=== PATIENT | male | born 1960 | race African-American/Black ===

== ENCOUNTER 2017-03-25 19:57 | Emergency (ER) | payer OTHER ==
[~2017-03-25] VITALS: Ht 180.3 cm; Wt 83.9 kg
[~2017-03-25 19:57] MED LIST: AMOX-426 PO; FLA250 PO; SACC250C3 PO
[2017-03-25 20:12] VITALS: BP_SYST 137
[2017-03-25] MEDS ORDERED: LIDOCAINE/EPI 1% 1:100000 20 ML VIAL IJ ONE (22:00)
[2017-03-25 22:15] VITALS: BP_SYST 120
== END 2017-03-25 22:15 | disposition home or self-care (01) ==
LOC: SED 19:57
DX: S01.512A Laceration without foreign body of oral cavity, initial encounter (principal); W50.3XXA Accidental bite by another person, initial encounter; Y93.89 Activity, other specified; Y92.89 Other specified places as the place of occurrence of the external cause; Y99.8 Other external cause status
CPT/HCPCS: 99284

== ENCOUNTER 2019-12-28 11:02 | Outpatient (CLI) | payer OTHER | END 2019-12-28 19:38 | disposition home or self-care (01) | LOC: SUS 11:02 | DX: N20.0 Calculus of kidney (principal) | CPT/HCPCS: 76770 ==